=== PATIENT | female | born 1985 | race Caucasian/White ===

== ENCOUNTER 2017-11-28 07:45 | Inpatient (IN) | payer OTHER ==
[2017-11-28] MEDS ORDERED: MIDAZOLAM 1 MG/ML 2 ML INJ (11:17)
[2017-11-28] MEDS: BUPIVACAINE 0.25% (MPF) 30 ML INJ ×2 (11:41→12:36)
[2017-11-28] MEDS ORDERED: morphine 10 MG INJ (11:59)
[2017-11-28] MEDS ORDERED: CEFAZOLIN 1 GM INJ (12:40)
[2017-11-28] MEDS ORDERED: GLYCOPYRROLATE 0.4 MG INJ (12:40)
[2017-11-28] MEDS ORDERED: LIDOCAINE 2% (SDV) 5 ML INJ (12:40)
[2017-11-28] MEDS ORDERED: NEOSTIGMINE 3 MG/3 ML SYRINGE (12:40)
[2017-11-28] MEDS ORDERED: ROCURONIUM 50 MG INJ (12:40)
[2017-11-28] MEDS ORDERED: ONDANSETRON 4 MG INJ (12:40)
[2017-11-28] MEDS ORDERED: PROPOFOL 20 ML (12:40)
[2017-11-28] MEDS ORDERED: FENTAnyl 50 MCG/ML VIAL (12:59)
[2017-11-28] MEDS ORDERED: NALOXONE (0.4 MG/ML) INJ IV (13:00)
[2017-11-28] MEDS ORDERED: DIPHENHYDRAMINE 50 MG INJ IV (13:00)
[2017-11-28] MEDS: FENTAnyl 50 MCG/ML VIAL IV ×3 (13:03→13:17)
[2017-11-28] MEDS: MEPERIDINE 25 MG INJ IV (13:13)
[2017-11-28] MEDS: ONDANSETRON 4 MG INJ IV ×3 (13:16→20:01)
[2017-11-28] MEDS: HYDROmorphONE (0.2 MG/ML) 10ML SYG IV ×3 (13:30→13:51)
[2017-11-28] MEDS: HYDROmorphONE 0.2 MG/ML PCA IV ×3 (13:32→19:58)
[2017-11-28] MEDS: CEFAZOLIN 2 GM/50 ML (PMX) 50 ML IVPB ×2 (13:42→22:04)
[2017-11-28] MEDS: SOD CHLORIDE 0.9% 1,000 ML IV ×2 (13:44→22:04)
[2017-11-28 16:43] LABS: ADD MAN DIFF? NO
[2017-11-28 16:46] LABS: WHITE BLOOD COUNT 17.3 10^3/ul (4.8-10.8)
[2017-11-28 16:46] LABS: BASOPHILS % 0.2 % (0.0-2.0); EOSINOPHILS % 0.1 % (0.0-7.0); HEMATOCRIT 35.3 % (37.0-47.0); HEMOGLOBIN 11.4 g/dl (12.0-16.0); LYMPHOCYTES # 1.1 10^3/ul (0.8-2.9); LYMPHOCYTES % 6.5 % (15.0-51.0); MEAN CORPUSCULAR HEMOGLOBIN 26.6 pg (29.0-33.0); MEAN CORPUSCULAR HGB CONC 32.3 g/dl (32.0-37.0); MEAN CORPUSCULAR VOLUME 82.3 fl (82.0-101.0); MEAN PLATELET VOLUME 10.1 fl (7.4-10.4); MONOCYTE # 0.6 10^3/ul (0.3-0.9); MONOCYTES % 3.5 % (0.0-11.0); NEUTROPHIL # 15.4 10^3/ul (1.6-7.5); NEUTROPHILS % 89.1 % (39.0-77.0); PLATELET COUNT 339 10^3/UL (140-415); RED BLOOD COUNT 4.29 10^6/ul (4.20-5.40); RED CELL DISTRIBUTION WIDTH 13.5 % (11.5-14.5)
[2017-11-28 17:11] LABS: ALANINE AMINOTRANSFERASE 731 IU/L (13-69); ALBUMIN 3.4 g/dl (3.3-4.9); ALBUMIN/GLOBULIN RATIO 1.09; ALKALINE PHOSPHATASE 144 IU/L (42-121); ANION GAP 12 (8-16); BILIRUBIN,INDIRECT 0.5 mg/dl (0-1.1); BILIRUBIN,TOTAL 0.8 mg/dl (0.2-1.3); BLOOD UREA NITROGEN 11 mg/dl (7-20); CALCIUM 7.2 mg/dl (8.4-10.2); CARBON DIOXIDE 26 mmol/L (21-31); CHLORIDE 109 mmol/L (97-110); CREATININE 0.68 mg/dl (0.44-1.00); GLUCOSE 142 mg/dl (70-220); POTASSIUM 4.2 mmol/L (3.5-5.1); SODIUM 143 mmol/L (135-144); TOTAL PROTEIN 6.5 g/dl (6.1-8.1)
[2017-11-28 17:28] LABS: ASPARTATE AMINO TRANSFERASE 902 IU/L (15-46)
[2017-11-29] MEDS: ONDANSETRON 4 MG INJ IV (01:21)
[2017-11-29] MEDS: CEFAZOLIN 2 GM/50 ML (PMX) 50 ML IVPB (05:00)
[2017-11-29 06:09] LABS: ADD MAN DIFF? NO; BASOPHILS % 0.2 % (0.0-2.0); EOSINOPHILS % 0.1 % (0.0-7.0); HEMATOCRIT 32.6 % (37.0-47.0); HEMOGLOBIN 10.1 g/dl (12.0-16.0); LYMPHOCYTES # 1.4 10^3/ul (0.8-2.9); LYMPHOCYTES % 9.1 % (15.0-51.0); MEAN PLATELET VOLUME 10.2 fl (7.4-10.4); MONOCYTES % 6.5 % (0.0-11.0); NEUTROPHIL # 12.4 10^3/ul (1.6-7.5); NEUTROPHILS % 83.6 % (39.0-77.0); PLATELET COUNT 303 10^3/UL (140-415); RED BLOOD COUNT 3.88 10^6/ul (4.20-5.40); RED CELL DISTRIBUTION WIDTH 13.7 % (11.5-14.5)
[2017-11-29 06:09] LABS: WHITE BLOOD COUNT 14.8 10^3/ul (4.8-10.8)
[2017-11-29 06:23] LABS: ANION GAP 10 (8-16)
[2017-11-29 06:35] LABS: ALANINE AMINOTRANSFERASE 552 IU/L (13-69); ALBUMIN 3.3 g/dl (3.3-4.9); ALBUMIN/GLOBULIN RATIO 1.06; ALKALINE PHOSPHATASE 132 IU/L (42-121); ASPARTATE AMINO TRANSFERASE 368 IU/L (15-46); BILIRUBIN,INDIRECT 0.6 mg/dl (0-1.1); BILIRUBIN,TOTAL 0.6 mg/dl (0.2-1.3); BLOOD UREA NITROGEN 10 mg/dl (7-20); CALCIUM 7.1 mg/dl (8.4-10.2); CARBON DIOXIDE 31 mmol/L (21-31); CHLORIDE 106 mmol/L (97-110); CREATININE 0.65 mg/dl (0.44-1.00); GLUCOSE 127 mg/dl (70-220); POTASSIUM 4.5 mmol/L (3.5-5.1); SODIUM 142 mmol/L (135-144); TOTAL PROTEIN 6.4 g/dl (6.1-8.1)
[2017-11-29] MEDS: HYDROmorphONE 0.2 MG/ML PCA IV ×2 (07:06→15:52)
[2017-11-29] MEDS: SOD CHLORIDE 0.9% 1,000 ML IV ×3 (10:47→20:00)
[2017-11-29] MEDS: KETOROLAC 30 MG INJ IV ×2 (14:10→20:27)
[2017-11-29] MEDS: DIPHENHYDRAMINE 25 MG CAP PO ×2 (14:32→21:47)
[2017-11-30] MEDS: KETOROLAC 30 MG INJ IV ×4 (01:51→17:53)
[2017-11-30] MEDS: HYDROmorphONE 0.2 MG/ML PCA IV (04:40)
[2017-11-30] MEDS: SOD CHLORIDE 0.9% 1,000 ML IV ×3 (04:45→19:03)
[2017-11-30 05:17] LABS: ADD MAN DIFF? NO
[2017-11-30 05:26] LABS: BASOPHILS % 0.2 % (0.0-2.0); EOSINOPHILS # 0.3 10^3/ul (0.0-0.5); EOSINOPHILS % 3.7 % (0.0-7.0); HEMATOCRIT 26.6 % (37.0-47.0); HEMOGLOBIN 8.3 g/dl (12.0-16.0); LYMPHOCYTES # 2.3 10^3/ul (0.8-2.9); LYMPHOCYTES % 24.8 % (15.0-51.0); MEAN CORPUSCULAR HEMOGLOBIN 26.3 pg (29.0-33.0); MEAN CORPUSCULAR HGB CONC 31.2 g/dl (32.0-37.0); MEAN CORPUSCULAR VOLUME 84.2 fl (82.0-101.0); MEAN PLATELET VOLUME 10.5 fl (7.4-10.4); MONOCYTE # 0.7 10^3/ul (0.3-0.9); MONOCYTES % 7.5 % (0.0-11.0); NEUTROPHIL # 5.8 10^3/ul (1.6-7.5); NEUTROPHILS % 63.6 % (39.0-77.0); PLATELET COUNT 241 10^3/UL (140-415); RED BLOOD COUNT 3.16 10^6/ul (4.20-5.40); RED CELL DISTRIBUTION WIDTH 13.7 % (11.5-14.5)
[2017-11-30 05:26] LABS: WHITE BLOOD COUNT 9.2 10^3/ul (4.8-10.8)
[2017-11-30 05:48] LABS: ALANINE AMINOTRANSFERASE 293 IU/L (13-69); ALBUMIN 2.7 g/dl (3.3-4.9); ALBUMIN/GLOBULIN RATIO 0.96; ALKALINE PHOSPHATASE 97 IU/L (42-121); ANION GAP 6 (8-16); ASPARTATE AMINO TRANSFERASE 108 IU/L (15-46); BILIRUBIN,INDIRECT 0.2 mg/dl (0-1.1); BILIRUBIN,TOTAL 0.2 mg/dl (0.2-1.3); BLOOD UREA NITROGEN 4 mg/dl (7-20); CALCIUM 7.4 mg/dl (8.4-10.2); CARBON DIOXIDE 34 mmol/L (21-31); CHLORIDE 106 mmol/L (97-110); CREATININE 0.56 mg/dl (0.44-1.00); GLUCOSE 123 mg/dl (70-220); POTASSIUM 3.8 mmol/L (3.5-5.1); SODIUM 142 mmol/L (135-144); TOTAL PROTEIN 5.5 g/dl (6.1-8.1)
[2017-11-30] MEDS: ONDANSETRON 4 MG INJ IV ×2 (09:33→17:52)
[2017-11-30] MEDS: morphine 2 MG INJ IV (19:07)
[2017-12-01] MEDS: KETOROLAC 30 MG INJ IV ×3 (01:00→13:03)
[2017-12-01 05:35] LABS: ADD MAN DIFF? NO; BASOPHILS % 0.2 % (0.0-2.0); EOSINOPHILS # 0.3 10^3/ul (0.0-0.5); EOSINOPHILS % 3.1 % (0.0-7.0); HEMATOCRIT 27.2 % (37.0-47.0); HEMOGLOBIN 8.6 g/dl (12.0-16.0); LYMPHOCYTES # 1.2 10^3/ul (0.8-2.9); LYMPHOCYTES % 11.7 % (15.0-51.0); MEAN CORPUSCULAR HEMOGLOBIN 26.6 pg (29.0-33.0); MEAN CORPUSCULAR HGB CONC 31.6 g/dl (32.0-37.0); MEAN CORPUSCULAR VOLUME 84.2 fl (82.0-101.0); MEAN PLATELET VOLUME 10.3 fl (7.4-10.4); MONOCYTE # 0.5 10^3/ul (0.3-0.9); MONOCYTES % 5.1 % (0.0-11.0); NEUTROPHILS % 79.3 % (39.0-77.0); PLATELET COUNT 280 10^3/UL (140-415); RED BLOOD COUNT 3.23 10^6/ul (4.20-5.40); RED CELL DISTRIBUTION WIDTH 13.5 % (11.5-14.5)
[2017-12-01 05:35] LABS: WHITE BLOOD COUNT 10.1 10^3/ul (4.8-10.8)
[2017-12-01 06:11] LABS: ALANINE AMINOTRANSFERASE 202 IU/L (13-69); ALBUMIN 3.2 g/dl (3.3-4.9); ALBUMIN/GLOBULIN RATIO 1.06; ALKALINE PHOSPHATASE 106 IU/L (42-121); ANION GAP 11 (8-16); ASPARTATE AMINO TRANSFERASE 64 IU/L (15-46); BILIRUBIN,INDIRECT 0.3 mg/dl (0-1.1); BILIRUBIN,TOTAL 0.3 mg/dl (0.2-1.3); BLOOD UREA NITROGEN 5 mg/dl (7-20); CALCIUM 7.5 mg/dl (8.4-10.2); CARBON DIOXIDE 28 mmol/L (21-31); CHLORIDE 108 mmol/L (97-110); CREATININE 0.55 mg/dl (0.44-1.00); GLUCOSE 120 mg/dl (70-220); POTASSIUM 3.6 mmol/L (3.5-5.1); SODIUM 143 mmol/L (135-144); TOTAL PROTEIN 6.2 g/dl (6.1-8.1)
[2017-12-01] MEDS: SOD CHLORIDE 0.9% 1,000 ML IV (10:45)
== END 2017-12-01 16:40 | disposition home or self-care (01) | DRG 415 ==
LOC: SDS 07:45 → REC 12:44 → MS1 14:49
PROC: 0FT40ZZ Resection of Gallbladder, Open Approach (ICD-10-PCS; principal; 2017-11-28 10:30)
PROC: 0FJ44ZZ Inspection of Gallbladder, Percutaneous Endoscopic Approach (ICD-10-PCS; 2017-11-28 10:30)
DX: K80.10 Calculus of gallbladder with chronic cholecystitis without obstruction (principal); K91.61 Intraoperative hemorrhage and hematoma of a digestive system organ or structure complicating a digestive system procedure; R71.0 Precipitous drop in hematocrit; E66.01 Morbid (severe) obesity due to excess calories; Z68.38 Body mass index [BMI] 38.0-38.9, adult; Z53.31 Laparoscopic surgical procedure converted to open procedure; Y83.6 Removal of other organ (partial) (total) as the cause of abnormal reaction of the patient, or of later complication, without mention of misadventure at the time of the procedure; Y92.234 Operating room of hospital as the place of occurrence of the external cause
CPT/HCPCS: 80053; 84703; 85025; 88304

== ENCOUNTER 2017-12-04 14:14 | Outpatient (CLI) | payer OTHER | END 2017-12-04 15:48 | disposition home or self-care (01) | LOC: DCC 14:14 | DX: K81.0 Acute cholecystitis (principal); R10.11 Right upper quadrant pain | CPT/HCPCS: G0463 ==

== ENCOUNTER 2017-12-17 14:34 | Outpatient (CLI) | payer OTHER | END 2017-12-17 16:09 | disposition home or self-care (01) | LOC: DCC 14:34 | DX: R10.9 Unspecified abdominal pain (principal) | CPT/HCPCS: G0463 ==